=== PATIENT | female | born 1955 | race Caucasian/White ===

== ENCOUNTER 2025-08-02 05:43 | Emergency (ER) | payer MEDICAID, MEDICARE ==
[2025-08-02 06:03] LABS: BASOPHILS ABSOLUTE AUTO 0.1 x10-3/uL (0.0-0.1); BASOPHILS PERCENT AUTO 0.5 % (0.2-1.5); BLOOD UREA NITROGEN,BUN 20 mg/dL (7-18); CARBON DIOXIDE,CO2 29 mmol/L (21-32); CHLORIDE,CL 101 mmol/L (100-110); CREATININE 0.7 mg/dL (0.55-1.02); EOSINOPHILS ABSOLUTE AUTO 0.0 x10-3/uL (0.0-0.8); EOSINOPHILS PERCENT AUTO 0.1 % (0.6-8.1); ESTIMATED GFR 92 mL/min (>60); GLUCOSE RANDOM 208 mg/dL (80-116); LYMPHOCYTES ABSOLUTE AUTO 2.2 x10-3/uL (1.0-4.4); LYMPHOCYTES PERCENT AUTO 20.0 % (18.4-52.1); MEAN PLATELET VOLUME 7.8 fL (7.1-12.4); MONOCYTES ABSOLUTE AUTO 0.5 x10-3/uL (0.3-1.0); MONOCYTES PERCENT AUTO 4.8 % (4.4-15.7); NEUTROPHILS ABSOLUTE AUTO 8.0 x10-3/uL (1.5-6.3); NEUTROPHILS PERCENT AUTO 74.6 % (30.8-76.2); PLATELET COUNT,PLT 263 x10(3)uL (151-488); POTASSIUM,K 3.3 mmol/L (3.5-5.3); RED BLOOD CELL COUNT 4.78 x10(6)uL (3.60-5.20); RED CELL DISTRIBUTION WIDTH 13.9 % (12.3-16.5); SODIUM,NA 140 mmol/L (135-145); WHITE BLOOD CELL COUNT,WBC 10.8 x10-3/uL (3.0-10.3)
[2025-08-02] MEDS: Prochlorperazine 10 MG/2 ML SDV IVPUSH ONE (06:10)
[2025-08-02 06:15] LABS: A/G RATIO 0.9; ALANINE AMINOTRANSFERASE,ALT 34 U/L (12-36); ASPARTATE AMNIOTRANSFERASE,AST 30 IU/L (5-25); BILIRUBIN TOTAL 0.5 mg/dL (0.1-1.3); PROTEIN TOTAL,TP 8.0 g/dL (6.0-8.0)
[2025-08-02] MEDS ORDERED: Sodium Chloride 0.9% 10 ML Syringe FLUSH PRN (06:35)
[2025-08-02 08:20] LABS: GLUCOSE,URINE 100 mg/dL (NORMAL); OCCULT BLOOD,URINE NEGATIVE (NEGATIVE)
[2025-08-02 08:21] LABS: APPEARANCE,URINE CLEAR (CLEAR)
[2025-08-02] MEDS: LORazepam 2 MG/ML SDV IVPUSH ONE (08:30)
== END 2025-08-02 09:41 | disposition home or self-care (01) ==
LOC: FB.ED 05:43
DX: I10 Essential (primary) hypertension (principal); Z88.5 Allergy status to narcotic agent; Z88.8 Allergy status to other drugs, medicaments and biological substances; Z79.899 Other long term (current) drug therapy
CPT/HCPCS: 36415; 70450; 80053; 81003; 84484; 85025; 93005; 96374; 96375; 99284; A9270; J0780; J2060